=== PATIENT | female | born 1985 | race American Indian/Alaskan Native ===

== ENCOUNTER 2018-01-26 17:13 | Inpatient (IN) | payer OTHER ==
[2018-01-26] MEDS: SUBLIMAZE ONE (17:32)
[2018-01-26] MEDS ORDERED: SUBLIMAZE IV PRN (17:37)
[2018-01-26] MEDS ORDERED: POLYCILLIN/NS 2 GM/100 ML 2 GM/100 ML BAG IV ONE (17:37)
[2018-01-26 17:47] LABS: Hematocrit 34.3 % (30.3-42.9); Hemoglobin 11.3 gm/dl (10.1-14.3); Mean Corpuscular HGB Conc 33 % (30-34); Mean Corpuscular Hemoglobin 28 pg (28-32); Mean Corpuscular Volume 83 fl (79-97); Platelet Count 218 K/mm3 (140-440); Red Blood Count 4.12 M/mm3 (3.65-5.03); Red Cell Distribution Width 14.1 % (13.2-15.2)
[2018-01-26] MEDS ORDERED: LACTATED RINGERS 1,000 ML IV SCH ×2 (18:00→19:00)
[2018-01-26] MEDS: PITOCin/NS 20 UNIT/1000ML DRIP 20 UNITS/1,000 ML BAG IV SCH ×2 (18:35→20:02)
[2018-01-26] MEDS ORDERED: ePHEDrine SULFATE IV PRN (18:56)
[2018-01-26] MEDS ORDERED: BRETHINE SUB-Q PRN (18:56)
[2018-01-26] MEDS ORDERED: MINERAL OIL PO PRN (18:56)
[2018-01-26] MEDS ORDERED: XYLOCAINE 2% INFILTRATI ONE (18:56)
--- NOTE | 2018-01-26 18:56 | History and Physical Report ---
History of Present Illness Date of examination: 01/26/18 Date of admission: 01/26/18 17:13 Chief complaint: Contractions History of present illness: 32yo G 11 P 9 0 1 9 @ 38 weeks 1 day here with c/o contractions since 05:00 associated with light vaginal bleeding. She reports + FMs but denies LOF. Her care is complicated by grand multiparity, late entry to care @ 30w2d, bacteria vaginosis (treated with Metronidazole), Vitamin D deficiency (on supplementation), and + antibody screen. She has a h/o pulmonary embolism and genital herpes. She denies calf pain, SOB or recent herpes outbreak. She is on suppressive therapy. Her care was co-managed with Hematology and [facility]. She was on Lovenox 40mg SQ qd and was switched to Heparin 3 days ago. She is GBS positive. 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 Family/Genetic History: none Social history: , lives with family, full code - Obstetrical History Expected Date of Delivery: 02/08/18 Actual Gestation: 38 Week(s) 1 Day(s) : 11 Para: 9 Hx # Term Pregnancies: 9 Number of Pregnancies: 0 Spontaneous Abortions: 1 Induced : 0 Number of Living Children: 9 Medications and Allergies Allergies Allergy/AdvReac Type Severity Reaction Status Date / Time No Known Allergies Allergy Verified 12/24/15 11:11 Home Medications Medication Instructions Recorded Confirmed Last Taken Type Heparin 20,000 unit SQ DAILY 12/24/15 01/26/18 1 Day Ago History ~01/25/18 Pnv with Ca,No.72/Iron/FA 1 tab PO DAILY 12/24/15 01/26/18 1 Day Ago History [ Plus Tablet] ~01/25/18 Ferrous Sulfate [Feosol 325 MG tab] 1 tab PO TID 01/26/18 01/26/18 1 Day Ago History ~01/25/18 Active Meds: Active Medications Fentanyl (Sublimaze) 100 mcg IV Q2H PRN PRN Reason: Labor Pain Lactated Ringer's (Lactated Ringers) 1,000 mls @ 125 mls/hr IV DIRECT MAYI Last Admin: 01/26/18 17:50 Dose: 125 mls/hr Oxytocin/Sodium Chloride (Pitocin/Ns 20 Unit/1000ml Drip) 20 units in 1,000 mls @ 250 mls/hr IV DIRECT MAYI Review of Systems All systems: negative - Vital Signs Vital signs: Vital Signs Temp Resp 97.8 F 16 01/26/18 17:17 01/26/18 17:17 Temp Pulse Resp BP Pulse Ox 97.8 F 96 H 16 110/70 82 L 01/26/18 17:17 01/26/18 18:51 01/26/18 17:17 01/26/18 18:51 01/26/18 17:59 - Physical Exam Cardiovascular: Regular rate, Normal S1, Normal S2, No murmurs Lungs: Positive: Clear to auscultation, Normal air movement Abdomen: Positive: normal appearance, soft Genitourinary (Female): Positive: normal external genitalia, normal perenium. Negative: perineal/vulvar lesions Vulva: both: normal Vagina: Positive: discharge (bloody) Uterus: Positive: normal size Extremities: Positive: normal. Negative: tenderness Deep Tendon Reflex Grade: Normal +2 - Obstetrical FHR: auscultation normal, category 2 FHR comments: baseline 150, marked variability, + accels, occasional variable decels Uterine Contraction Monitor Mode: External Cervical Dilatation: 7 (per RN) Cervical Effacement Percentage: 100 (per RN) station: -1 (per RN) Uterine Contraction Frequency (min): 2-4 Uterine Contraction Pattern: Regular Results Result Diagrams: 01/26/18 17:10 All other labs normal. Assessment and Plan - Patient Problems (1) 38 weeks gestation of Current Visit: Yes Status: Acute (2) Active labor at term Current Visit: Yes Status: Acute Plan to address problem: Admit to L&D with routine labor orders Anticipate vaginal delivery (3) Group B streptococcal carriage complicating Current Visit: Yes Status: Acute Plan to address problem: Start Ampicillin for GBS prophylaxis (4) Grand multipara in labor Current Visit: Yes Status: Acute
[2018-01-26] MEDS ORDERED: PITOCin/NS 20 UNIT/1000ML DRIP 20 UNITS/1,000 ML BAG IV SCH (19:00)
--- NOTE | 2018-01-26 19:07 | Procedure Note ---
OB Delivery Note - Delivery Date of Delivery: 01/26/18 (18:29) Surgeon: KRISTINE HENRY (JANINA) Estimated blood loss: 200cc - Vaginal Delivery presentation: vertex Delivery position: OA Intrapartum events: precipitous labor- <3hr Delivery induction: none Delivery augmentation: rupture of membranes (AROM @ 18:28, clear, moderate amount) Delivery monitor: external FHT, external uterine Route of delivery: Delivery placenta: spontaneous (18:35) Delivery cord: 3 umbilical vessels Episiotomy: none Delivery laceration: none Anesthesia: none Delivery comments: of a vigorous term 7 lbs 5 oz female @ 18:29. Baby placed [id number] on maternal abdomen. After 4 mins, umbilical cord double-clamped by JANINA Henry and cut by FOB. Spontaneous delivery of placenta @ 18:33, Leidy-side presenting. Small lochia noted. Fundus F/ML/U+1. 50 ml of urine straight- catheterized. Placenta intact; was discarded. Perineum intact. One dose of ampicillin given for GBS prophylaxis. Mom and baby in stable condition. - A at 1 minute: 8 at 5 minutes: 9 Infant Gender: Female (7 lbs 5 oz (3323 gm); 19 in)
[2018-01-26] MEDS ORDERED: TUCKS PAD TP PRN (19:11)
[2018-01-26] MEDS ORDERED: PHENERGAN PO PRN (19:11)
[2018-01-26] MEDS ORDERED: ZOFRAN IV PRN (19:11)
[2018-01-26] MEDS ORDERED: DULCOLAX PR PRN (19:11)
[2018-01-26] MEDS ORDERED: PHENERGAN PR PRN (19:11)
[2018-01-26] MEDS ORDERED: MILK OF MAGNESIA PO PRN (19:11)
[2018-01-26] MEDS ORDERED: BENADRYL PO PRN (19:11)
[2018-01-26] MEDS ORDERED: TYLENOL PO PRN (19:11)
[2018-01-26] MEDS ORDERED: LANSINOH TP PRN (19:11)
[2018-01-26] MEDS ORDERED: SODIUM CHLORIDE FLUSH SYRINGE 10 ML IV NR (20:00)
[2018-01-26] MEDS: MOTRIN PO SCH (20:02)
[2018-01-26] MEDS: NORCO 5/325 PO PRN (21:54)
[2018-01-27] MEDS ORDERED: PITOCin/NS 20 UNIT/1000ML DRIP 20,000 MILLIUNITS/1,000 ML BAG IV ONE (01:56)
[2018-01-27] MEDS: MOTRIN PO SCH ×5 (02:00→23:26)
[2018-01-27 06:24] LABS: Hematocrit 31.5 % (30.3-42.9); Hemoglobin 10.5 gm/dl (10.1-14.3)
[2018-01-27] MEDS: NORCO 5/325 PO PRN ×2 (06:45→18:00)
[2018-01-27] MEDS: FEOSOL PO SCH (10:11)
[2018-01-27] MEDS: PRENATAL VITAMIN PO SCH (10:11)
--- NOTE | 2018-01-27 11:03 | Progress Note ---
Assessment and Plan A: PPD#1 s/p Stable P: Routine PP care Discharge home 01/28 Subjective - Subjective Date of service: 01/27/18 Principal diagnosis: PPD#1 s/p Patient reports: appetite normal, voiding normally, pain well controlled, flatus , ambulating normally : doing well Objective - Vital Signs Latest vital signs: Vital Signs Temp Pulse Resp BP BP Pulse Ox 01/27/18 08:00 98.1 F 56 L 20 98/54 100 01/27/18 06:45 18 01/27/18 05:50 98.9 F 58 L 18 99/51 01/27/18 01:34 98.6 F 56 L 16 106/53 01/26/18 22:54 16 01/26/18 21:54 20 01/26/18 21:02 16 01/26/18 20:47 99.1 F 68 18 112/52 01/26/18 20:04 71 81 L 01/26/18 20:03 80 L 01/26/18 19:43 80 96/54 01/26/18 19:42 51 L 86 01/26/18 19:37 83 90 01/26/18 19:33 60 93/50 01/26/18 19:32 79 99 01/26/18 19:27 79 80 L 01/26/18 19:26 97.9 F 69 16 93/50 83 L 01/26/18 19:22 81 100 01/26/18 19:17 97 H 90 01/26/18 19:12 99 H 99 01/26/18 19:11 96 H 93 01/26/18 18:58 80 110/56 01/26/18 18:51 96 H 110/70 01/26/18 18:40 97.5 F L 16 01/26/18 18:14 81 119/53 01/26/18 17:59 104 H 82 L 01/26/18 17:58 80 109/65 01/26/18 17:54 75 100 01/26/18 17:49 69 100 01/26/18 17:44 85 94 01/26/18 17:43 72 109/60 01/26/18 17:42 81 92 01/26/18 17:39 105 H 100 01/26/18 17:34 107 H 99 01/26/18 17:29 110 H 100 01/26/18 17:20 105 H 100 01/26/18 17:17 97.8 F 16 Intake and Output 01/26/18 01/27/18 01/27/18 23:59 07:59 15:59 Intake Total 582.5 Output Total 600 800 Balance -17.5 -800 Intake: IV 462.5 PITOCin/NS 20 UNIT/1000ML 362.5 DRIP 20 units In 1,000 ml @ 250 mls/hr IV DIRECT MAYI Rx#:[id number] POLYCILLIN/NS 2 GM/100 ML 100 2 gm In 100 ml @ 100 mls /hr IV ONCE ONE Rx#: [id number] Intake, Free Water 120 Output: Urine 600 800 Void 600 800 Other: Total, Output Amount 600 800 Weight 83.461 kg Estimated Blood Loss 200 - Exam Breasts: Present: normal Cardiovascular: Present: Regular rate, Normal S1, Normal S2 Lungs: Present: Clear to auscultation, Normal air movement Abdomen: Present: normal appearance, soft, normal bowel sounds Vulva: both: normal (perineum intact) Uterus: Present: normal, firm, fundal height below umbilicus (-2) Extremities: Present: normal Deep Tendon Reflex Grade: Normal +2
--- NOTE | 2018-01-27 11:04 | Discharge Summary ---
Providers - Providers Date of Admission: 01/26/18 17:13 Date of discharge: 01/28/18 Attending physician: PAMELA GÓMEZ MD Primary care physician: PAMELA GÓMEZ MD Hospitalization Reason for admission: active labor, IUP at term Delivery: Procedure details: See H&P and delivery summary Episiotomy: none Laceration: none Other procedures: none complications: none Discharge diagnosis: IUP at term delivered baby: female Condition at discharge: Good Disposition: DC-01 TO HOME OR SELFCARE Plan - Provider Discharge Summary Activity: routine, no sex for 6 weeks, no heavy lifting 4 weeks, no strenuous exercise Diet: routine Instructions: routine Additional instructions: [] Smoking cessation referral if applicable(refer to patient education folder for contact #) [] Refer to [facility] Booklet Call your doctor immediately for: * Fever > 100.5 * Heavy vaginal bleeding ( >1 pad per hour) * Severe persistent headache * Shortness of breath * Reddened, hot, painful area to leg or breast * Drainage or odor from incision. * Keep incision clean and dry at all times and follow doctor's instructions regarding bathing/showering - Follow up plan Follow up: PAMELA GÓMEZ MD [Primary Care Provider] - 6 Weeks
[2018-01-27] MEDS ORDERED: LOVENOX SUB-Q SCH (22:00)
[2018-01-28] MEDS: MOTRIN PO SCH ×2 (04:59→12:04)
[2018-01-28] MEDS: PRENATAL VITAMIN PO SCH (10:42)
[2018-01-28] MEDS: FEOSOL PO SCH (12:40)
[2018-01-28 17:28] VITALS: BP 102/57
== END 2018-01-28 21:30 | disposition home or self-care (01) | DRG 774 ==
LOC: LD 17:13 → OB 21:09
PROVIDERS: ADMIT Obstetrics & Gynecology; ATTEND Obstetrics & Gynecology
PROC: 10E0XZZ Delivery of Products of Conception, External Approach (ICD-10-PCS; principal; 2018-01-26)
DX: O99.824 Streptococcus B carrier state complicating childbirth (principal); O98.32 Other infections with a predominantly sexual mode of transmission complicating childbirth; Z3A.38 38 weeks gestation of pregnancy; Z37.0 Single live birth; O62.3 Precipitate labor; A60.00 Herpesviral infection of urogenital system, unspecified
CPT/HCPCS: 36415; 85014; 85018; 85027; 86592; 86850; 86870; 86900; 86901; 99211; G0463; J0290; J1650; J2590; J3010; J7120

== ENCOUNTER 2019-02-24 10:30 | Emergency (ER) | payer MEDICAID, OTHER ==
[2019-02-24 03:47] LABS: Hematocrit 28.5 % (30.3-42.9); Hemoglobin 9.6 gm/dl (10.1-14.3); Mean Corpuscular HGB Conc 34 % (30-34); Mean Corpuscular Volume 86 fl (79-97); Platelet Count 261 K/mm3 (140-440); Red Blood Count 3.32 M/mm3 (3.65-5.03); Red Cell Distribution Width 13.8 % (13.2-15.2)
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
[~2019-02-24 10:30] MED LIST: LACTATED RINGERS 1,000 ML IV ONE; TYLENOL PO ONE
[2019-02-24 11:14] VITALS: BP 96/47
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
== END 2019-02-24 14:44 | disposition home or self-care (01) ==
LOC: TRG 10:51 → ED 10:51 → EDSTATUS 11:06 → ED 14:44
DX: O9A.213 Injury, poisoning and certain other consequences of external causes complicating pregnancy, third trimester (principal); S63.611A Unspecified sprain of left index finger, initial encounter; S70.12XA Contusion of left thigh, initial encounter; S09.90XA Unspecified injury of head, initial encounter; M79.10 Myalgia, unspecified site; Z3A.29 29 weeks gestation of pregnancy; V89.2XXA Person injured in unspecified motor-vehicle accident, traffic, initial encounter; Y93.89 Activity, other specified; Y92.488 Other paved roadways as the place of occurrence of the external cause; Y99.8 Other external cause status
CPT/HCPCS: 36415; 59025; 70450; 73140; 76805; 76819; 85027; 85460; 99284; J7120; 96360

== ENCOUNTER 2019-05-03 00:41 | Inpatient (IN) | payer MEDICAID ==
[2019-05-03] MEDS ORDERED: LACTATED RINGERS 1,000 ML ONE (03:47)
[2019-05-03] MEDS ORDERED: XYLOCAINE 2% INFILTRATI ONE ×3 (03:47→15:31)
[2019-05-03] MEDS ORDERED: PITOCin/NS 20 UNIT/1000ML DRIP 20,000 MILLIUNITS/1,000 ML BAG IV ONE (03:47)
[2019-05-03] MEDS ORDERED: AMPICILLIN/NS 2 GM/100 ML 2 GM/100 ML BAG IV ONE (03:47)
[2019-05-03] MEDS ORDERED: BRETHINE SUB-Q PRN (03:47)
[2019-05-03] MEDS ORDERED: PITOCin/NS 20 UNIT/1000ML DRIP 20 UNITS/1,000 ML BAG IV SCH ×2 (04:00→05:00)
[2019-05-03] MEDS ORDERED: LACTATED RINGERS 1,000 ML IV SCH ×2 (04:00→05:00)
--- NOTE | 2019-05-03 04:01 | History and Physical Report ---
History of Present Illness Date of examination: 05/03/19 Date of admission: 05/03/19 Chief complaint: Contractions History of present illness: 34 year old 0 1 10 presents to L&D with regular contractions. Patient denies vaginal bleeding or leaking of fluid. Patient reports active movement. 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 LMP 08/05/18. EDC 05/12/19. significant for the following: grand multipara, closely spaced pregnancies, history of 2 PEs during previous pregnancies (2015 and 2017) and on Lovenox 120 mg daily during this , anemia (supplemented with oral iron), vitamin D deficiency (supplemented with Vitamin D), + antibody screen (no specific antibody identified), overweight, GBS bacteriuria, HSV 2 positive (prescribed Valtrex, unclear if patient has taken it consistently for suppression). labs are as follows: B+, antibody screen positive, rubella immune, varicella immune, hepatitis B surface antigen negative, HIV negative, RPR nonreactive, GC negative, CT negative, TV negative, hemoglobin electrophoresis normal, quad screen negative, 1 hour sugar test 84, GBS positive. 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 denies: abnormal PAP smear, chlamydia, gonorrhea, hepatitis B, hepatitis C, HIV, syphilis, trichomonas Family/Genetic History: none Social history: , lives with family, full code. denies: smoking, alcohol abuse, prescription drug abuse, IV drug use - Obstetrical History Expected Date of Delivery: 05/12/19 Actual Gestation: 38 Week(s) 5 Day(s) : 12 Para: 10 Hx # Term Pregnancies: 10 Number of Pregnancies: 0 Spontaneous Abortions: 1 Induced : 0 Number of Living Children: 10 Medications and Allergies Allergies Allergy/AdvReac Type Severity Reaction Status Date / Time No Known Allergies Allergy Verified 12/24/15 11:11 Home Medications Medication Instructions Recorded Confirmed Last Taken Type Enoxaparin [Lovenox] 120 mg SUB-Q DAILY 02/24/19 05/03/19 05/02/19 10:00 History Vit-Fe Fumar-FA [ 1 tab PO QDAY 05/03/19 05/03/19 05/02/19 History Vitamin] Valacyclovir HCl [Valtrex] 1,000 mg PO BID 05/03/19 05/03/19 05/02/19 History Active Meds: Active Medications Ephedrine Sulfate (Ephedrine Sulfate) 10 mg IV Q2M PRN PRN Reason: Hypotension Fentanyl (Sublimaze) 100 mcg IV Q2H PRN PRN Reason: Labor Pain Oxytocin/Sodium Chloride (Pitocin/Ns 20 Unit/1000ml Drip) 20 units in 1,000 mls @ 125 mls/hr IV DIRECT MAYI Lactated Ringer's (Lactated Ringers) 1,000 mls @ 125 mls/hr IV DIRECT MAYI Ampicillin Sodium (Ampicillin/Ns 2 Gm/100 Ml) 2 gm in 100 mls @ 100 mls/hr IV ONCE ONE; Protocol Stop: 05/03/19 04:46 Ampicillin Sodium (Ampicillin/Ns 1 Gm/50 Ml) 1 gm in 50 mls @ 100 mls/hr IV Q4HR MAYI; Protocol Lidocaine (Xylocaine 2%) 20 ml INFILTRATI ONCE ONE Stop: 05/03/19 03:48 Terbutaline Sulfate (Brethine) 0.25 mg SUB-Q ONCE PRN PRN Reason: Hyperstimulation/Hypertonicity Review of Systems All systems: negative (contractions) - Vital Signs Vital signs: Vital Signs Pulse BP 68 109/57 05/03/19 01:22 05/03/19 01:22 Temp Pulse Resp BP Pulse Ox 99.1 F 71 16 106/60 05/03/19 01:47 05/03/19 03:46 05/03/19 01:47 05/03/19 03:46 - Physical Exam Cardiovascular: Regular rate, Normal S1, Normal S2 Lungs: Positive: Clear to auscultation Abdomen: Positive: normal appearance, soft. Negative: distention, tenderness, guarding, rigidity Genitourinary (Female): Positive: normal perenium, perineal/vulvar lesions. Neg ative: normal external genitalia (lesion noted just above clitoris; herpes swab taken) Vagina: Positive: normal moisture Uterus: Positive: enlarged Anus/Rectum: Positive: normal perianal skin Extremities: Positive: normal - Obstetrical FHR: category 1 Uterine Contraction Monitor Mode: External Cervical Dilatation: 4 Cervical Effacement Percentage: 80 (BBOW) station: -3 to -4 Uterine Contraction Pattern: Regular Uterine Contraction Intensity: Moderate Results Result Diagrams: 05/03/19 03:55 All other labs normal. Assessment and Plan A: at 38 5/7 weeks gestation. Active labor. Grand multipara. GBS posititve. HSV 2 positive; genital lesion noted on exam. P: Admit. Continuous EFM. GBS prophylaxis. Valtrex suppression of HSV. Consulted with Dr. Lo re: patient and Dr. Lo recommended a section. Informed patient that section is recommended due to presence of vulvar lesion. Advised patient of risks to baby if she delivers with active vulvar lesion present. Advised patient we will not have the result of the herpes swab back for several days. Advised patient that if baby comes in contact with herpes, it could be very serious for the baby (including blindness, seizures, brain damage, and ). Patient refused section. Patient states she understands the risks of vaginal in the presence of vulvar lesion; patient states she fully accepts these risks to the baby and wants to proceed with vaginal . Dr. Lo notified of patient's refusal of section.
[2019-05-03 04:15] LABS: Hematocrit 30.2 % (30.3-42.9); Mean Corpuscular HGB Conc 33 % (30-34); Mean Corpuscular Volume 83 fl (79-97); Platelet Count 209 K/mm3 (140-440); Red Blood Count 3.64 M/mm3 (3.65-5.03); Red Cell Distribution Width 14.6 % (13.2-15.2)
[2019-05-03] MEDS ORDERED: PEPCID IV ONE (04:26)
[2019-05-03] MEDS ORDERED: BICITRA PO ONE (04:26)
[2019-05-03] MEDS ORDERED: REGLAN IV ONE (04:26)
[2019-05-03] MEDS ORDERED: ANCEF/STERILE WATER 2 GM/20 ML 2 GM/20 ML SYRINGE IV NR (05:00)
[2019-05-03] MEDS ORDERED: VALTREX PO SCH ×2 (05:15→05:37)
[2019-05-03] MEDS: SUBLIMAZE IV PRN ×3 (05:35→12:00)
[2019-05-03 05:37] LABS: INR 0.96 (0.87-1.13)
[2019-05-03 05:38] LABS: Partial Thromboplastin Time 25.8 Sec. (24.2-36.6)
[2019-05-03] MEDS ORDERED: AMPICILLIN/NS 1 GM/50 ML 1 GM/50 ML BAG IV SCH (08:00)
--- NOTE | 2019-05-03 10:47 | Event Note ---
Date: 05/03/19 Patient requests to be checked. SVE 5/95/-3/BBOW. Category 1 heart rate tracing.
[2019-05-03] MEDS ORDERED: TYLENOL PO PRN (14:36)
[2019-05-03] MEDS ORDERED: DULCOLAX PR PRN (14:36)
[2019-05-03] MEDS ORDERED: TUCKS PAD TP PRN (14:36)
[2019-05-03] MEDS ORDERED: LANSINOH TP PRN (14:36)
--- NOTE | 2019-05-03 14:48 | Procedure Note ---
OB Delivery Note - Delivery Date of Delivery: 05/03/19 Surgeon: TRISTON RAPHAEL Estimated blood loss: other (150 cc) - Vaginal Delivery presentation: vertex Delivery position: OA Delivery induction: none Route of delivery: Delivery placenta: spontaneous Delivery cord: 3 umbilical vessels Episiotomy: none Delivery laceration: none Anesthesia: local Delivery comments: Spontaneous vaginal delivery at 14:17 of liveborn female weighing 7 lb. 9 oz. over intact perineum with apgars of 8/9. Baby placed skin to skin with mom immediately after . Spontaneous cry and respirations. Baby dried and bulb suctioned. 3 vessel cord double clamped and cut after cessation of pulsation. Spontaneous delivery of intact placenta and membranes by higgins mechanism. Pitocin to IV fluids after delivery of placenta. Fundus firm and midline. EBL 150 cc. Vaginal sweep negative. No lacerations noted. Sponge count correct. Mother and baby stable in birthing room.
[2019-05-03] MEDS ORDERED: SODIUM CHLORIDE FLUSH SYRINGE 10 ML IV NR (15:00)
[2019-05-03 17:03] LABS: Alanine Aminotransferase 8 units/L (7-56); Albumin 3.2 g/dL (3.9-5); BUN/Creatinine Ratio 6; Blood Urea Nitrogen 3 mg/dL (7-17); Calcium 8.8 mg/dL (8.4-10.2); Hemolysis Index 3
[2019-05-03] MEDS: NORCO 5/325 PO PRN (17:34)
[2019-05-03] MEDS ORDERED: MILK OF MAGNESIA PO PRN (22:00)
[2019-05-03] MEDS: LOVENOX SUB-Q SCH (22:34)
[2019-05-04] MEDS: NORCO 5/325 PO PRN ×3 (00:50→20:33)
[2019-05-04 05:25] LABS: Hematocrit 31.5 % (30.3-42.9); Hemoglobin 10.1 gm/dl (10.1-14.3)
--- NOTE | 2019-05-04 10:34 | Progress Note ---
Assessment and Plan - Patient Problems (1) Status post normal vaginal delivery Current Visit: Yes Status: Acute Plan to address problem: PPD 1 - stable Continue routine PP orders Discharge to home 05/05/19. Follow-up at [facility] as needed or in 6 weeks for exam (2) History of pulmonary embolism Current Visit: Yes Status: Acute Plan to address problem: Continue Lovenox 120mg SQ Subjective - Subjective Date of service: 05/04/19 Principal diagnosis: PPD #1, s/p Interval history: see H&P, Event Note and OB Delivery Procedure Note Patient reports: appetite normal, voiding normally, pain well controlled, ambulating normally, other (denies leg pain or SOB), no dizzy ambulation : doing well, nursing well Objective - Vital Signs Latest vital signs: Vital Signs Temp Pulse Resp BP BP Pulse Ox 05/04/19 07:50 97.5 F L 50 L 18 101/48 05/04/19 00:35 98.3 F 57 L 20 107/62 97 05/03/19 20:40 98.1 F 63 20 104/54 98 05/03/19 13:04 98.1 F 05/03/19 13:00 88 126/59 Intake and Output 05/03/19 05/04/19 05/04/19 23:59 07:59 15:59 Intake Total 600 480 Output Total 750 1600 Balance -150 -1120 Intake: Oral 240 480 Intake, Free Water 360 Output: Urine 750 1600 Void 750 1600 Other: Total, Intake Amount 240 480 Total, Output Amount 750 800 # Voids Void 2 1 - Exam Cardiovascular: Present: Regular rate Lungs: Present: Clear to auscultation Abdomen: Present: normal appearance, soft Vulva: both: normal Uterus: Present: normal, firm Extremities: Present: normal, other (negative CVAT) Comments: scant lochia - Labs Labs: Abnormal lab results 05/03/19 Range/Units 16:18 BUN 3 L (7-17) mg/dL Creatinine 0.5 L (0.7-1.2) mg/dL Alkaline Phosphatase 147 H (35-129) units/L Albumin 3.2 L (3.9-5) g/dL
--- NOTE | 2019-05-04 10:38 | Discharge Summary ---
Providers - Providers Date of Admission: 05/03/19 04:27 Date of discharge: 05/05/19 Attending physician: PAMELA GÓMEZ MD Primary care physician: PAMELA GÓMEZ MD Hospitalization Reason for admission: active labor, IUP at term Delivery: Episiotomy: none Laceration: none Other procedures: none complications: none Discharge diagnosis: IUP at term delivered [place] baby: female Condition at discharge: Stable Disposition: MD-01 TO HOME OR SELFCARE - Discharge Diagnoses (1) Status post normal vaginal delivery Status: Acute (2) History of pulmonary embolism Status: Acute Comment: Continue Lovenox 120mg SQ daily Plan - Provider Discharge Summary Activity: routine, no sex for 6 weeks, no heavy lifting 4 weeks, no strenuous exercise Diet: routine Instructions: routine Additional instructions: [] Smoking cessation referral if applicable(refer to patient education folder for contact #) [] [facility] Booklet Call your doctor immediately for: * Fever > 100.5 * Heavy vaginal bleeding ( >1 pad per hour) * Severe persistent headache * Shortness of breath * Reddened, hot, painful area to leg or breast * Drainage or odor from incision. * Keep incision clean and dry at all times and follow doctor's instructions regarding bathing/showering - Follow up plan Follow up: PAMELA GÓMEZ MD [Primary Care Provider] - 6 Weeks (Follow up at [facility] as needed or in 6 weeks for exam)
[2019-05-04] MEDS: FEOSOL PO SCH ×2 (10:51→21:56)
[2019-05-04] MEDS: LOVENOX SUB-Q SCH (21:56)
[2019-05-05] MEDS: FEOSOL PO SCH (10:11)
[2019-05-05] MEDS: NORCO 5/325 PO PRN ×2 (10:18→16:08)
[2019-05-05 15:54] VITALS: BP 95/48
== END 2019-05-05 18:38 | disposition home or self-care (01) | DRG 774 ==
LOC: TRG 00:41 → LD 04:27 → OB 16:01
PROVIDERS: ADMIT Obstetrics & Gynecology; ATTEND Obstetrics & Gynecology
PROC: 10E0XZZ Delivery of Products of Conception, External Approach (ICD-10-PCS; principal; 2019-05-03)
DX: O99.824 Streptococcus B carrier state complicating childbirth (principal); O98.32 Other infections with a predominantly sexual mode of transmission complicating childbirth; Z3A.38 38 weeks gestation of pregnancy; Z37.0 Single live birth; Z86.711 Personal history of pulmonary embolism; Z79.899 Other long term (current) drug therapy
CPT/HCPCS: 36415; 80053; 85014; 85018; 85027; 85610; 85730; 86592; 86850; 86870; 86900; 86901; 87255; G0378; A6250; J0290; J1650; J2590; J3010; J7120

== ENCOUNTER 2020-02-27 03:01 | Outpatient (CLI) | payer MEDICAID ==
--- NOTE | 2020-02-27 04:11 | Ultrasound Report ---
Limited obstetrical ultrasound. HISTORY: Evaluate for abruption/demise. FINDINGS: Imaging was performed transabdominally. The uterus measures 13.2 x 7.3 cm. A thickened hete rogeneous endometrial stripe measures 3 cm. There is no increased vascularity. Right ovary measures 4.1 x 2.1 x 2 cm. Left ovary measures 3.9 x 2.7 x 3.2 cm and contains a 1.7 cm c omplex cyst. Both ovaries demonstrate flow. Negative for adnexal mass or fluid. IMPRESSION: 1. Thickened, heterogeneous endometrial stripe. No intrauterine . 2. Small complex cyst left ovary. Signer Name: Shyam Beard MD Signed: 02/27/2020 4:07 AM Workstation Name: [id number]
== END 2020-02-27 04:03 | disposition still patient (30) ==
LOC: TRG 03:01 → APU 03:01 → TRG 04:03
PROVIDERS: ATTEND Obstetrics & Gynecology
DX: O34.82 Maternal care for other abnormalities of pelvic organs, second trimester (principal); O23.592 Infection of other part of genital tract in pregnancy, second trimester; Z3A.25 25 weeks gestation of pregnancy
CPT/HCPCS: 76815

== ENCOUNTER 2021-02-25 21:47 | Inpatient (IN) | payer MEDICAID ==
--- NOTE | 2021-02-25 22:26 | Procedure Note ---
OB Delivery Note - Delivery Date of Delivery: 02/25/21 Surgeon: ISI MAZARIEGOS Estimated blood loss: 300cc - Vaginal Delivery presentation: vertex Delivery position: OA Intrapartum events: precipitous labor- <3hr Delivery induction: none Route of delivery: Delivery placenta: spontaneous Episiotomy: none Delivery laceration: none Anesthesia: none Delivery comments: Patient presented to labor delivery in active labor fully dilated when arrived to the floor. Patient had precipitous delivery upon reaching LDR room has tender as I entered delivered by RN clamped and cut the cord and obtained cord blood and placenta was spontaneously delivered with IM Pitocin given - Infant A at 1 minute: 9 at 5 minutes: 9 Gender: Male
[2021-02-25] MEDS ORDERED: LANOLIN/ZINC/DIMETHICONE (LANSINOH) 7 GM TP PRN (22:57)
[2021-02-25] MEDS ORDERED: ACETAMINOPHEN 325 MG TAB PO PRN (22:57)
[2021-02-25] MEDS ORDERED: MAGNESIUM HYDROXIDE (MOM) ORAL LIQD UDC PO PRN (22:57)
[2021-02-25] MEDS ORDERED: WITCH HAZEL/ GLYCERIN PAD TP PRN (22:57)
[2021-02-25] MEDS ORDERED: PROMETHAZINE 25 MG TAB PO PRN (22:57)
[2021-02-25] MEDS ORDERED: ONDANSETRON 4 MG/2 ML INJ IV PRN (22:57)
[2021-02-25] MEDS ORDERED: diphenhydrAMINE 25 MG CAP PO PRN (22:57)
[2021-02-25] MEDS ORDERED: PROMETHAZINE 25 MG RECT SUPP PR PRN (22:57)
[2021-02-25] MEDS ORDERED: IBUPROFEN 600 MG TAB PO SCH (23:00)
--- NOTE | 2021-02-25 23:11 | History and Physical Report ---
History of Present Illness Date of examination: 02/25/21 Date of admission: 02/25/21 Chief complaint: ACTIVE LABOR History of present illness: The patient is a 35-year-old female 14 para 08/29/2011. 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 She has had 11 spontaneous she has 11 children social history is negative at the office her blood type was B+ antibody screen was positive hematocrit 30.2% Pap smear was normal rubella was immune hepatitis B was negative HIV was negative platelets 200% varicella was immune HSV-2 positive gonorrhea chlamydia negative sickle screen negative trichomonas negative cystic fibrosis no anomalies detected. Ultrasound on 10/25/2020 glucose screen was negative she had a repeat ultrasound to 2020 VDRL was nonreactive gonorrhea chlamydia tests were negative and January group B strep test was negative HIV test was negative. The patient was admitted for precipitous delivery in active labor. Past History Past Medical History: other (HX OF PE) Past Surgical History: no surgical history Family/Genetic History: diabetes, hypertension Social history: no significant social history - Obstetrical History Expected Date of Delivery: 03/08/21 Actual Gestation: 38 Week(s) 3 Day(s) : 13 Para: 11 Hx # Term Pregnancies: 11 Number of Pregnancies: 0 Spontaneous Abortions: 1 Induced : 1 Number of Living Children: 11 Medications and Allergies Allergies Allergy/AdvReac Type Severity Reaction Status Date / Time No Known Allergies Allergy Verified 12/24/15 11:11 Home Medications Medication Instructions Recorded Confirmed Last Taken Type Enoxaparin [Lovenox] 120 mg SUB-Q DAILY 02/24/19 05/03/19 05/02/19 10:00 History Vit-Fe Fumar-FA [ 1 tab PO QDAY 05/03/19 05/03/19 05/02/19 History Vitamin] Valacyclovir HCl [Valtrex] 1,000 mg PO BID 05/03/19 05/03/19 05/02/19 History Active Meds: Active Medications Promethazine HCl (Promethazine 25 Mg Rect Supp) 25 mg TX Q6H PRN PRN Reason: Nausea And Vomiting Promethazine HCl (Promethazine 25 Mg Tab) 25 mg PO Q6H PRN PRN Reason: Nausea And Vomiting Review of Systems All systems: negative - Vital Signs Vital signs: Vital Signs Pulse BP 85 108/55 02/25/21 22:30 02/25/21 22:30 Temp Pulse Resp BP Pulse Ox 86 112/58 90 02/25/21 23:03 02/25/21 23:01 02/25/21 23:03 - Physical Exam Breasts: Cardiovascular: Regular rate, Normal S1, Normal S2 Lungs: Positive: Clear to auscultation Abdomen: Positive: normal appearance, soft, normal bowel sounds. Negative: distention, tenderness Genitourinary (Female): Positive: normal external genitalia Vulva: both: normal Vagina: Positive: normal moisture. Negative: discharge Cervix: Negative: lesion, discharge Uterus: Positive: normal size, normal contour Adnexa: both: normal Anus/Rectum: Positive: normal perianal skin, heme negative. Negative: rectal mass, hemorrhoids Extremities: Deep Tendon Reflex Grade: Normal +2 - Obstetrical FHR: category 1 Uterine Contraction Pattern: Regular Uterine Contraction Intensity: Strong/Firm Results All other labs normal. Assessment and Plan PRECIPITOUS DELIVERY, , NO TEARS. - Patient Problems (1) History of pulmonary embolism Current Visit: No Status: Acute (2) (normal spontaneous vaginal delivery) Current Visit: No Status: Acute
[2021-02-25] MEDS ORDERED: OXYTOCIN 10 UNIT/1 ML INJ IM ONE (23:45)
[2021-02-25] MEDS: HYDROcodone/ACETAMINOPHEN 5-325 MG TAB PO PRN (23:49)
[2021-02-26] MEDS ORDERED: OXYTOCIN DRIP 30 UNITS/500 ML BAG IV SCH (01:00)
[2021-02-26] MEDS: HEPARIN 5,000 UNIT/1 ML VIAL SUB-Q SCH ×3 (10:12→22:00)
[2021-02-26] MEDS: DOCUSATE SODIUM 100 MG CAP PO SCH ×2 (10:19→21:48)
[2021-02-26] MEDS: PRENATAL VIT27-FE FUMARATE-FOLIC ACID VIT TAB PO SCH (10:19)
[2021-02-26] MEDS: HYDROcodone/ACETAMINOPHEN 5-325 MG TAB PO PRN ×3 (10:20→22:06)
--- NOTE | 2021-02-26 11:30 | Progress Note ---
Assessment and Plan A: day 1 S/P . History of PE 2016. P: Admission labs ordered (no results available). Continue heparin as ordered by . Continue routine care. Subjective - Subjective Date of service: 02/26/21 Principal diagnosis: day 1 S/P Interval history: Doing well. No complaints. Denies pain. On heparin due to previous history of PE. No admission labs seen on chart; orders put in for CBC, type and screen, and syphilis serology. Patient reports: appetite normal, voiding normally, pain well controlled, ambulating normally, no dizzy ambulation, no nauseated : doing well Objective - Vital Signs Latest vital signs: Vital Signs Temp Pulse Resp BP BP Pulse Ox 02/26/21 10:20 16 02/26/21 08:18 98.5 F 86 18 97/55 99 02/26/21 01:25 98 F 61 18 100/58 98 02/26/21 00:37 43 L 82 L 02/26/21 00:36 75 100 02/26/21 00:31 75 99 02/26/21 00:30 76 102/52 02/26/21 00:26 76 98 02/26/21 00:21 83 99 02/26/21 00:16 72 99 02/26/21 00:15 85 98/55 02/26/21 00:11 74 99 02/26/21 00:06 79 100 02/26/21 00:01 65 102/59 100 02/25/21 23:56 76 100 02/25/21 23:51 81 99 02/25/21 23:49 18 02/25/21 23:46 73 100 02/25/21 23:41 82 100 02/25/21 23:36 78 100 02/25/21 23:31 78 100 02/25/21 23:30 88 95/61 02/25/21 23:26 62 100 02/25/21 23:21 75 100 02/25/21 23:16 75 100 02/25/21 23:15 70 121/57 02/25/21 23:14 74 90 02/25/21 23:11 83 99 02/25/21 23:06 84 100 02/25/21 23:03 86 90 02/25/21 23:01 86 112/58 100 02/25/21 22:56 89 99 02/25/21 22:51 77 100 02/25/21 22:46 89 100 02/25/21 22:41 84 100 02/25/21 22:40 98.0 F 75 18 95/61 100 02/25/21 22:36 81 100 02/25/21 22:31 59 L 83 L 02/25/21 22:30 85 108/55 Intake and Output 02/25/21 02/26/21 02/26/21 23:59 07:59 15:59 Other: Weight 87.997 kg Estimated Blood Loss 300 - Exam Abdomen: Present: normal appearance, soft Uterus: Present: normal, firm Extremities: Present: normal. Absent: tenderness
[2021-02-26 13:48] LABS: Basophils % (Auto) 0.2 % (0.0-1.8); Eosinophils % (Auto) 0.3 % (0.0-4.3); Hematocrit 35.3 % (30.3-42.9); Hemoglobin 11.9 gm/dl (10.1-14.3); Lymphocytes # (Auto) 2.2 K/mm3 (1.2-5.4); Lymphocytes % (Auto) 20.5 % (13.4-35.0); Mean Corpuscular HGB Conc 34 % (30-34); Mean Corpuscular Volume 83 fl (79-97); Monocytes # (Auto) 0.7 K/mm3 (0.0-0.8); Monocytes % (Auto) 6.6 % (0.0-7.3); Platelet Count 252 K/mm3 (140-440); Red Blood Count 4.25 M/mm3 (3.65-5.03); Red Cell Distribution Width 15.9 % (13.2-15.2)
[2021-02-27] MEDS: HYDROcodone/ACETAMINOPHEN 5-325 MG TAB PO PRN ×2 (05:12→12:36)
[2021-02-27] MEDS: PRENATAL VIT27-FE FUMARATE-FOLIC ACID VIT TAB PO SCH (09:16)
[2021-02-27] MEDS: DOCUSATE SODIUM 100 MG CAP PO SCH (09:16)
[2021-02-27] MEDS: HEPARIN 5,000 UNIT/1 ML VIAL SUB-Q SCH (09:16)
[2021-02-27 11:44] LABS: Hematocrit 37.6 % (30.3-42.9); Hemoglobin 12.5 gm/dl (10.1-14.3)
--- NOTE | 2021-02-27 13:07 | Progress Note ---
Assessment and Plan A: PP Day #2 Hx of PE P: Follow Routine Orders D/C Home today DR. Du Consulted: Recommends Lovenox 40mg subQ BID Does Not Recommend Depo Provera prior to discharge RTO in 2 Weeks Subjective - Subjective Date of service: 02/27/21 Principal diagnosis: day 1 S/P Patient reports: appetite normal, voiding normally, pain well controlled, flatus, ambulating normally Ward: doing well, bottle feeding (and bottlefeeding) Objective - Vital Signs Latest vital signs: Vital Signs Temp Pulse Resp BP Pulse Ox 02/27/21 08:29 98.0 F 75 18 102/54 99 02/27/21 01:01 98.1 F 62 20 91/42 98 02/26/21 16:41 16 02/26/21 15:57 98.5 F 71 18 104/59 98 Intake and Output 02/26/21 02/27/21 02/27/21 22:59 06:59 14:59 Intake Total 840 720 Balance 840 720 Intake: Oral 360 360 Intake, Free Water 480 360 Other: Total, Intake Amount 360 360 # Voids Void 2 1 - Exam Breasts: Present: normal Cardiovascular: Present: Regular rate Lungs: Present: Clear to auscultation, Normal air movement Abdomen: Present: normal appearance, soft, normal bowel sounds Uterus: Present: normal, firm, fundal height below umbilicus Extremities: Present: normal Incision: Present: normal, dry, intact - Labs Labs: Abnormal lab results 02/26/21 Range/Units 12:08 RDW 15.9 H (13.2-15.2) % Seg Neutrophils % 72.4 H (40.0-70.0) %
--- NOTE | 2021-02-27 13:08 | Discharge Summary ---
Providers - Providers Date of Admission: 02/25/21 23:17 Date of discharge: 02/27/21 Attending physician: YAMILA ALVARADO MD Primary care physician: YAMILA ALVARADO MD Hospitalization Reason for admission: active labor Delivery: Episiotomy: none Laceration: none Other procedures: none complications: none Discharge diagnosis: IUP at term delivered baby: male Condition at discharge: Good Disposition: DC-01 TO HOME OR SELFCARE Plan - Provider Discharge Summary Activity: routine, no sex for 6 weeks, no heavy lifting 4 weeks, no strenuous exercise Diet: routine Instructions: routine Additional instructions: [] Smoking cessation referral if applicable(refer to patient education folder for contact #) [] Refer to [facility] Booklet Call your doctor immediately for: * Fever > 100.5 * Heavy vaginal bleeding ( >1 pad per hour) * Severe persistent headache * Shortness of breath * Reddened, hot, painful area to leg or breast * Drainage or odor from incision. * Keep incision clean and dry at all times and follow doctor's instructions regarding bathing/showering - Follow up plan Follow up: YAMILA ALVARADO MD [Primary Care Provider] - 03/13/21 Forms: [facility] Discharge Summary
[2021-02-27 14:44] VITALS: BP 103/66
== END 2021-02-27 16:30 | disposition home or self-care (01) | DRG 774 ==
LOC: TRG 21:47 → APU 21:49 → LD 22:28 → TRG 22:57 → LD 23:17 → OB 02-26 01:47
PROC: 10E0XZZ Delivery of Products of Conception, External Approach (ICD-10-PCS; principal; 2021-02-25)
DX: O62.3 Precipitate labor (principal); O98.32 Other infections with a predominantly sexual mode of transmission complicating childbirth; Z3A.38 38 weeks gestation of pregnancy; Z37.0 Single live birth; Z83.3 Family history of diabetes mellitus; Z82.49 Family history of ischemic heart disease and other diseases of the circulatory system; Z20.822 Contact with and (suspected) exposure to COVID-19; A60.09 Herpesviral infection of other urogenital tract
CPT/HCPCS: 36415; 85014; 85018; 85025; 86592; 86850; 86870; 86900; 86901; G0378; J1644; J2590; U0003